=== PATIENT | female | born 1960 | race Caucasian/White ===

== ENCOUNTER 2024-04-11 09:55 | Outpatient (CLI) | payer OTHER, SELFPAY ==
--- NOTE | ~2024-04-11 | MR_ITS ---
MRI of the left foot CLINICAL HISTORY: Left second toe capsulitis, pain and swelling TECHNIQUE: Sagittal T1-weighted and STIR images, axial proton-density and proton-density fat-sat imag es, and coronal T1-weighted and proton-density fat-sat images were performed. FINDINGS: There is no acute fracture or dislocation/subluxation. 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 There is a small joint effusion at the first MTP joint. No definite plantar plate injury. Normal si gnal preserved in the hallux sesamoids. Remaining joint spaces are preserved. Possible minimal soft t issue edema at the second MTP joint region. No intermetatarsal bursitis or Valdez's neuroma identifie d. Intrinsic musculature of the foot is unremarkable. Plantar fascia intact. Flexor and extensor tendons are intact. IMPRESSION: Mild degenerative change of the first MTP joint. Please see details above. Questionable minimal soft tissue edema about the second MTP joint, nonspecific. Reviewed, dictated and finalized at location .
== END 2024-04-11 09:56 ==
DX: M77.9 Enthesopathy, unspecified (principal); M19.072 Primary osteoarthritis, left ankle and foot
CPT/HCPCS: 73718